=== PATIENT | male | born 1990 | race Caucasian/White ===

== ENCOUNTER 2017-02-21 18:31 | Emergency (ER) | payer MEDICAID ==
[~2017-02-21] VITALS: Ht 180.3 cm; Wt 87.6 kg
[~2017-02-21 18:31] MED LIST: DOXY100T PO; SULF-154 PO
[2017-02-21 18:43] VITALS: BP 144/83; PULSE 79; RESP 16; TEMP 99.1; O2SAT 99
[2017-02-21] MEDS ORDERED: CEPH-460 PO (19:19)
[2017-02-21] MEDS ORDERED: BACT800T5 PO (19:19)
--- NOTE | 2017-02-21 19:23 | PD ---
HPI Chief Complaint: Skin Problem Time Seen by Provider: 19:00 Travel History International Travel<30 days: No Contact w/Intl Traveler<30days: No Traveled to known affect area: No History of Present Illness HPI 26-year-old male presents to the emergency room for evaluation of right elbow pain, swelling, and redness for the past 2 days. Patient states he woke up with the symptoms. He thought maybe it started because he had his elbow and across his forehead while he slept. Denies any itchiness or open wounds to the area. Denies any trauma or injury to the area. Reports pain with range of motion and palpation. Denies fever, chills, nausea, or vomiting. Denies paresthesias. No chronic medical conditions or daily medications. PFSH Past Medical History ADHD: No Cancer: No Diabetes: No Diminished Hearing: No Psychiatric: No Immunizations Current: No Migraines: No Seizures: No Thyroid Disease: No Ulcer: No Tetanus Vaccination: < 5 Years Influenza Vaccination: No Past Surgical History Appendectomy: No Cholecystectomy: No Other Surgery: No Social History Alcohol Use: No Tobacco Use: No Substance Use: Yes (HX MARIJUANA) Allergies-Medications (Allergen,Severity, Reaction): Coded Allergies: Geodon (Verified Allergy, Severe, Tachycardia, 02/21/17) SVT Reported Meds & Prescriptions Reported Meds & Active Scripts Active Keflex (Cephalexin) 500 Mg Capsule 500 Mg PO Q6H 10 Days Bactrim DS (Sulfamethoxazole-Trimethoprim) 800-160 Mg Tab 1 Tab PO BID Review of Systems Except as stated in HPI: all other systems reviewed are Neg Physical Exam Narrative GENERAL: Well-nourished, well-developed male in no acute distress. Afebrile. Ambulatory. SKIN: Focused skin assessment warm/dry. There is mild erythema and slight increased warmth to the right elbow. HEAD: Normocephalic. EYES: No scleral icterus. No injection or drainage. NECK: Supple, trachea midline. No JVD or lymphadenopathy. CARDIOVASCULAR: Regular rate and rhythm without murmurs, gallops, or rubs. RESPIRATORY: Breath sounds equal bilaterally. No accessory muscle use. MUSCULOSKELETAL: No cyanosis. 2+ radial pulse. Radial, ulnar, and median nerves intact. Full range of motion of the right upper extremity. Mild edema over the olecranon bursa. Data Data Last Documented VS Vital Signs Date Time Temp Pulse Resp B/P Pulse Ox O2 Delivery O2 Flow Rate FiO2 02/21/17 19:09 18 02/21/17 18:43 99.1 79 144/83 99 MDM Medical Decision Making Medical Screen Exam Complete: Yes Emergency Medical Condition: Yes Medical Record Reviewed: Yes Differential Diagnosis Bursitis, cellulitis, folliculitis, spasm, strain, sprain Narrative Course 26-year-old male presents to the emergency room for evaluation of right elbow pain, redness, and swelling for the past 2 days. Patient denies trauma or injury. States he woke up like that. Physical exam reveals mildly erythematous olecranon bursitis. It is tender to palpation. No fluctuance or concern for abscess. No skin injury. Right upper extremity is neurovascularly intact with 2+ radial pulse. Full range of motion. Tenderness to palpation over the olecranon. There is moderate erythema and mildly increased warmth. This is olecranon bursitis. Patient will be treated for possible cellulitis with Bactrim and Keflex. Told to follow-up with her primary care physician or return for worsening symptoms. He understands and agrees to plan. Diagnosis Primary Impression: Olecranon bursitis, right elbow Referrals: Primary Care Physician Patient Instructions: Elbow Bursitis (ED), General Instructions Additional Instructions: Rest and drink plenty of fluids. Take Bactrim as directed, until gone. Take Keflex as directed, until gone. Follow up with a primary care physician. Return to emergency room for worsening symptoms, as discussed. Med/Other Pt SpecificInfo: Prescription(s) given Scripts Cephalexin (Keflex)500 Mg [id number] Mg PO Q6H 10 Days Ref 0 Prov:Jim Martin MD 02/21/17 Sulfamethoxazole-Trimethoprim (Bactrim DS)800-160 Mg Tab1 Tab PO BID #20 TAB Ref 0 Prov:Jim Martin MD 02/21/17 Disposition: 01 DISCHARGE HOME Condition: Stable Diana Murguia Feb 21, 2017 19:23
== END 2017-02-21 19:33 | disposition home or self-care (01) ==
LOC: PHEFT 18:31
DX: M70.21 Olecranon bursitis, right elbow (principal)
CPT/HCPCS: 99284